=== PATIENT | female | born 1955 | race Caucasian/White ===

== ENCOUNTER → 2018-06-06 | Outpatient (CLI) | payer OTHER ==
--- NOTE | 2018-06-06 14:34 | MR ---
EXAMINATION TYPE: MR cervical spine wo con DATE OF EXAM: 06/06/2018 COMPARISON: 04/24/2016 HISTORY: Cervicalgia TECHNIQUE: Multiplanar, multisequence images of the cervical spine were acquired without intravenous contrast. FINDINGS: The cervical spine vertebral bodies maintain normal vertebral body heights and alignment. The visuali zed portions of the posterior fossa are grossly unremarkable. Cervical cord signal is homogeneous. Mu ltilevel disc desiccation is seen. C2-C3: There is a small left paracentral disc osteophyte complex (previously described as a small her niation) and uncovertebral hypertrophy without significant spinal canal stenosis. Mild bilateral neur al foraminal narrowing is seen. C3-C4: There is a right lateral disc herniation superimposed upon a broad-based disc bulge, uncoverte bral hypertrophy, and facet arthropathy that create severe right neural foraminal narrowing and mild spinal canal stenosis. Left neural foramen is patent. C4-C5: There is a broad-based disc bulge and minimal uncovertebral hypertrophy creating very mild theresa rowing of the central subarachnoid space without significant spinal canal stenosis nor neural foramin al narrowing. C5-C6: There is a broad-based disc bulge without significant spinal canal stenosis nor neural foramin al narrowing. C6-C7: Disc desiccation is seen as well as left facet arthropathy minimally narrowing the left neural foramen. Spinal canal and right neuroforamen are patent. C7-T1: No evidence for degenerative disc disease. No disc bulge/herniation or protrusion. No Canal stenosis. Foramina are patent bilaterally. IMPRESSION: Stable small right lateral disc herniation at C3-C4 and disc osteophyte complex at C2-C3 and comparis on to the prior 2016. No new herniation or significant progression in multilevel degenerative disc di sease. There is resultant mild spinal canal stenosis at C3-C4.
== END | disposition home or self-care (01) ==
LOC: RADMRIMAIN 11:06
PROVIDERS: ATTEND Physician Assistant
DX: M48.02 Spinal stenosis, cervical region (principal); M50.21 Other cervical disc displacement, high cervical region; M25.78 Osteophyte, vertebrae
CPT/HCPCS: 72141

== ENCOUNTER → 2018-06-06 | Outpatient (CLI) | payer OTHER ==
--- NOTE | 2018-06-07 11:30 | MM ---
Reason for exam: screening (asymptomatic). Last mammogram was performed 7 years and 3 months ago. History: Patient is postmenopausal. Physical Findings: A clinical breast exam by your physician is recommended on an annual basis and results should be correlated with mammographic findings. MG Screening Mammo w CAD Bilateral CC and MLO view(s) were taken. XCCL view(s) were taken of the right breast. Prior study comparison: March 16, 2011, bilateral digital screening mammo w/CAD. July 11, 2009, bilateral digital screening mammogram. There are scattered fibroglandular densities. No suspicious abnormality. No significant changes when compared with prior studies. ASSESSMENT: Negative, BI-RAD 1 RECOMMENDATION: Routine screening mammogram of both breasts in 1 year.
== END | disposition home or self-care (01) ==
LOC: RADMAMWWP 07:27
PROVIDERS: ATTEND Family Medicine
DX: Z12.31 Encounter for screening mammogram for malignant neoplasm of breast (principal)
CPT/HCPCS: 77067

== ENCOUNTER → 2019-06-12 | Outpatient (CLI) | payer OTHER ==
--- NOTE | 2019-06-12 17:47 | BD ---
EXAMINATION TYPE: Axial Bone Density DATE OF EXAM: 06/12/2019 COMPARISON: NONE CLINICAL HISTORY: 62-year-old female postmenopausal screening Height: 66 inches Weight: 208 FRAX RISK QUESTIONS: Alcohol (3 or more units per day): no Family History (Parent hip fracture): no Glucocorticoids (More than 3mos): no (Ex: prednisone, prednisolone, methylprednisolone, dexamethasone, and hydrocortisone). History of Fracture in Adulthood: no Secondary Osteoporosis: 1. Type 1 Diabetes: no 2. Hyperthyroidism: no 3. Menopause before 45: no 4. Malnutrition: no 5. Chronic liver disease: no Rheumatoid Arthritis: no Current Tobacco Use: no RISK FACTORS HISTORY OF: Family History of Osteoporosis: not to patient's knowledge Active: yes Diet low in dairy products/other sources of calcium: no Postmenopausal woman: yes Take estrogen and/or progesterone medications: no Lost more than 2 inches in height since high school: no Frequent falls: no Poor Health: no Hyperparathyroidism: no Adrenal Insufficiency: no MEDICATIONS: Prednisone or other steroids: no Thyroid Medications: yes Which medication: Synthroid How Long: over 20 years Osteoporosis Medications: no Additional Medications: Additional History: EXAM MEASUREMENTS: Bone mineral densitometry was performed using the [employer] System. Bone mineral density as measured about the Lumbar spine is: ----- L1-L4(G/cm2): 1.169 T Score Values are as follows: ----- L2: -0.3 ----- L3: 0.3 ----- L4: 0.2 ----- L1-L4: -0.1 Bone mineral density not previously done at this facility, done previously at office of physician Bone mineral density about the R hip (g/cm2): 0.825 Bone mineral density about the L hip (g/cm2): 0.774 T Score values are as follows: -----R Neck: -1.5 -----L Neck: -1.9 -----R Total: -1.8 -----L Total: -1.8 Bone mineral density not previously done at this facility, done previously at office of physician IMPRESSION: Osteopenia (T Score between -2.5 and -1). There is slightly increased risk of fracture and the patient may be considered for treatment. Re-Screen 2-5 years. NOTE: T-SCORE=SD OF THE YOUNG ADULT MEAN.
== END | disposition home or self-care (01) ==
LOC: RADBDWWP 12:43
PROVIDERS: ATTEND Family Medicine
DX: M85.80 Other specified disorders of bone density and structure, unspecified site (principal)
CPT/HCPCS: 77080

== ENCOUNTER → 2020-06-03 | Outpatient (CLI) | payer OTHER ==
--- NOTE | 2020-06-05 11:18 | MM ---
Reason for exam: screening (asymptomatic). Last mammogram was performed 2 years ago. History: Patient is postmenopausal. Physical Findings: A clinical breast exam by your physician is recommended on an annual basis and results should be correlated with mammographic findings. MG Screening Mammo w CAD Bilateral CC and MLO view(s) were taken. Prior study comparison: June 06, 2018, bilateral MG screening mammo w CAD. March 16, 2011, bilateral digital screening mammo w/CAD. Focal asymmetry right subareolar, stable. No significant changes when compared with prior studies. ASSESSMENT: Benign, BI-RAD 2 RECOMMENDATION: Routine screening mammogram of both breasts in 1 year.
== END | disposition home or self-care (01) ==
LOC: RADMAMWWP 07:20
PROVIDERS: ATTEND Family Medicine
DX: Z12.31 Encounter for screening mammogram for malignant neoplasm of breast (principal)
CPT/HCPCS: 77067

== ENCOUNTER → 2021-10-16 | Outpatient (CLI) | payer OTHER ==
--- NOTE | 2021-10-16 16:07 | XR ---
EXAMINATION TYPE: XR cervical spine 5 views comp, XR shoulder limited 2 views RT DATE OF EXAM: 10/16/2021 COMPARISON: None HISTORY: 65-year-old female M19.90 Osteoarthritis, M54.12 Cervical neuritis. FINDINGS: Cervical spine: Normal odontoid view. Heterotopic ossification along the posterior midline opposite C4 and C5. No pre dental space widening or prevertebral soft tissue swelling. Mild multilevel degenerative disc disease especially mid to lower cervical spine. Scattered facet and uncovertebral joint arthropathy. Very mi nimal mild bony neuroforaminal narrowing on the right and possibly more [id number] on the left at various levels. Suboptimal obliquity on the left oblique view for optimal assessment. Alignment ap pears maintained. Right shoulder: Mild degenerative joint space narrowing at the AC joint. Subacromial space preserved. No acute fractu re, subluxation, or dislocation seen on these limited 2 views (scapular Y and AP internal rotation). IMPRESSION: 1. Cervical spine: Mild to moderate multilevel spondylotic change. No malalignment. Variable mild bon y neuroforaminal narrowing throughout the right side and possibly more mild to moderate on the left s rashaad. 2. Right shoulder: Mild AC joint OA. No acute osseous abnormality seen on these limited 2 views.
== END | disposition home or self-care (01) ==
LOC: RADXRMAIN 13:21
PROVIDERS: ATTEND Family Medicine
DX: M19.011 Primary osteoarthritis, right shoulder (principal); M47.22 Other spondylosis with radiculopathy, cervical region
CPT/HCPCS: 72050

== ENCOUNTER → 2021-10-29 | Outpatient (CLI) | payer OTHER ==
--- NOTE | 2021-10-30 00:55 | MR ---
EXAMINATION TYPE: MR shoulder RT wo con DATE OF EXAM: 10/29/2021 COMPARISON: None HISTORY: Right shoulder pain, osteoarthritis. Multiplanar multiecho imaging of the right shoulder without contrast. There is hypertrophic spurring at the AC joint. There is minimal subacromial impingement. There is mi ld shoulder joint effusion with some elevation of the supraspinatus tendon. No definite full-thicknes s tear. There is no retraction. There is some mild soft tissue edema in the subcutaneous tissues at t he superior aspect of the humeral head. There are small degenerative cysts in the superior aspect of the humeral head. These measure up to 4 mm. There is some osteoarthritic narrowing of the glenohumera l joint space. The biceps tendon is intact. There is some mild deformity of the anterior glenoid labr um. IMPRESSION: Shoulder joint effusion. Intrasubstance tears of the supraspinatus tendon without a definite full-thi ckness tear. There is subcutaneous edema of the superior aspect of the shoulder joint. Mild subacromi al impingement. Mild osteoarthritis at the glenohumeral joint. Small degenerative cysts in the greate r tuberosity of the humerus.
== END | disposition home or self-care (01) ==
LOC: RADMRIMAIN 19:27
PROVIDERS: ATTEND Family Medicine
DX: M75.111 Incomplete rotator cuff tear or rupture of right shoulder, not specified as traumatic (principal); M19.011 Primary osteoarthritis, right shoulder; M85.611 Other cyst of bone, right shoulder; M25.411 Effusion, right shoulder

== ENCOUNTER → 2022-05-05 | Outpatient (CLI) | payer MEDICARE ==
--- NOTE | 2022-05-11 20:17 | MM ---
Reason for Exam: Screening (asymptomatic). Last mammogram was performed 1 year(s) and 11 month(s) ago. Patient History: Menarche at age 13. First Full-Term at age 25. Left ovary removed at age 46. Hysterectomy at age 46. Postmenopausal. Risk Values: Suzette 5 year model risk: 1.5%. NCI Lifetime model risk: 5.6%. Prior Study Comparison: 03/16/2011 Bilateral Screening Mammogram, [facility]. 06/06/2018 Bilateral Screening Mammogram, [facility]. 06/03/2020 Bilateral Screening Mammogram, [facility]. Tissue Density: There are scattered fibroglandular densities. Findings: Analyzed By CAD. There is no suspicious group of microcalcifications or new suspicious mass in either breast. Overall Assessment: Negative, BI-RAD 1 Management: Screening Mammogram of both breasts in 1 year. 1. Patient should continue monthly self breast exams. 2. A clinical breast exam by your physician is recommended on an annual basis. 3. This exam should not preclude additional follow-up of suspicious palpable abnormalities. Electronically signed and approved by: Stacie Mcclure M.D. Radiologist
== END | disposition home or self-care (01) ==
LOC: RADMAMWWP 13:36
PROVIDERS: ATTEND Family Medicine
DX: Z12.31 Encounter for screening mammogram for malignant neoplasm of breast (principal); Z78.0 Asymptomatic menopausal state
CPT/HCPCS: 77063; 77067